=== PATIENT | female | born 1995 | race African-American/Black ===

== ENCOUNTER 2017-11-12 14:12 | Emergency (ER) | payer OTHER ==
[~2017-11-12] VITALS: Ht 160 cm; Wt 57.2 kg
[~2017-11-12 14:12] MED LIST: ENDOCET 5-3251 EACH PO; IBUPROFEN800 MG PO; IRON325 M1 PO; PRENATAL TABLE1 EACH PO
[2017-11-12 16:34] LABS: HEMATOCRIT 37.5 % (36.0-46.0); HEMOGLOBIN 12.4 G/DL (11.9-15.5); MCH 27.6 PG (29.0-34.0); MCHC 33.1 G/DL (30.0-36.0); MCV 83.3 FL (83-99); PLATELET COUNT 187 K/uL (156-360); RBC DIS.WIDTH-CV 13.5 % (11.8-14.6); RBC DIS.WIDTH-SD 41.5 % (39-53); WHITE BLOOD COUNT 8.1 K/uL (4.1-10.2)
[2017-11-12 16:35] LABS: APPEARANCE SL.HAZY ((CLEAR)); BILIRUBIN NEGATIVE; BLOOD SMALL; COLOR YELLOW ((YELLOW)); GLUCOSE (STRIP) NEGATIVE; KETONES NEGATIVE; LEUKOCYTES TRACE; NITRITE NEGATIVE; PROTEIN (STRIP) NEGATIVE; SPECIFIC GRAVITY 1.008 (1.000-1.030); UROBILINOGEN 0.2 MG/DL (0.2-1.0)
[2017-11-12 16:37] LABS: ALBUMIN 3.5 g/dL (3.2-4.8); CHLORIDE 103 mEq/L (99-109); POTASSIUM 3.9 mEq/L (3.7-5.4); SODIUM 135 mEq/L (136-147)
[2017-11-12 16:38] LABS: BACTERIA NONE SEEN /HPF; EPITHELIAL CELLS 1+ /HPF; MUCUS NONE SEEN /LPF; RED BLOOD CELLS 0-5 /HPF (0-5); UCUL ADDED? NO; WHITE BLOOD CELLS 0-5 /HPF (0-5)
[2017-11-12 16:40] LABS: GLUCOSE 116 mg/dL (70-99); TOTAL PROTEIN 6.6 g/dL (6.4-8.3)
[2017-11-12 16:41] LABS: TOTAL BILIRUBIN 0.8 mg/dL (0.0-1.0)
[2017-11-12 16:43] LABS: ALKALINE PHOSPHATASE 171 IU/L (3-129); CREATININE 0.9 mg/dL (0.6-1.3); GFR ESTIMATE (CALCULATED) > 59 mL/min/
[2017-11-12 16:44] LABS: UREA NITROGEN (BUN) 7 mg/dL (9-23)
[2017-11-12 16:45] LABS: AST (GOT) 150 IU/L (2-34)
[2017-11-12 16:46] LABS: ALT (GPT) 173 IU/L (3-49)
[2017-11-12 16:51] LABS: MONOSPOT (MONONUCLEOSIS SEROL) NEGATIVE
[2017-11-12 16:56] LABS: QUANTITATIVE HCG < 4.0 MIU/ML
[2017-11-12 17:19] LABS: LIPASE 13 U/L (1.0-51.0)
[2017-11-12] MEDS ORDERED: MOTRIN600 MG PO (17:33)
[2017-11-12] MEDS ORDERED: FIORICET 50-301 EAC1 PO (17:44)
[2017-11-12 18:14] VITALS: BP 111/75
[2017-11-13] MEDS ORDERED: MINOCYCLINE HC100 MG PO (21:53)
[2017-11-13] MEDS ORDERED: ADAPALENE45 G1 TP (21:53)
== END 2017-11-12 18:15 | disposition home or self-care (01) ==
LOC: EME 14:12
PROVIDERS: Physician Assistant
DX: R51 Headache (principal); R50.9 Fever, unspecified; Z88.0 Allergy status to penicillin
CPT/HCPCS: 80053; 81003; 83690; 84702; 85027; 86308; 87651 90; 99281; 99284

== ENCOUNTER 2017-11-13 18:41 | Inpatient (IN) | payer OTHER ==
[~2017-11-13] VITALS: Ht 160 cm; Wt 57.3 kg
[~2017-11-13 18:41] MED LIST changes: +FIORICET 50-301 EAC1 PO; +MOTRIN600 MG PO
[2017-11-13 19:40] LABS: HEMATOCRIT 39.2 % (36.0-46.0); MCH 27.3 PG (29.0-34.0); MCHC 33.2 G/DL (30.0-36.0); MCV 82.4 FL (83-99); PLATELET COUNT 214 K/uL (156-360); RBC DIS.WIDTH-CV 13.4 % (11.8-14.6); RBC DIS.WIDTH-SD 40.3 % (39-53); RED BLOOD COUNT 4.76 M/uL (3.80-5.20)
[2017-11-13 19:52] LABS: ALBUMIN 3.6 g/dL (3.2-4.8); CHLORIDE 100 mEq/L (99-109); POTASSIUM 4.1 mEq/L (3.7-5.4); SODIUM 134 mEq/L (136-147)
[2017-11-13 19:54] LABS: GLUCOSE 92 mg/dL (70-99); TOTAL PROTEIN 6.9 g/dL (6.4-8.3)
[2017-11-13 19:57] LABS: TOTAL BILIRUBIN 2.2 mg/dL (0.0-1.0)
[2017-11-13 19:58] LABS: CREATININE 0.9 mg/dL (0.6-1.3); GFR ESTIMATE (CALCULATED) > 59 mL/min/
[2017-11-13 19:59] LABS: ALKALINE PHOSPHATASE 374 IU/L (3-129); UREA NITROGEN (BUN) 7 mg/dL (9-23)
[2017-11-13 20:00] LABS: AST (GOT) 83 IU/L (2-34)
[2017-11-13 20:01] LABS: ALT (GPT) 145 IU/L (3-49); LIPASE 10 U/L (1.0-51.0)
[2017-11-13 20:07] LABS: QUANTITATIVE HCG < 4.0 MIU/ML
[2017-11-13 20:58] LABS: APPEARANCE CLOUDY ((CLEAR)); BILIRUBIN NEGATIVE; BLOOD NEGATIVE; COLOR AMBER ((YELLOW)); GLUCOSE (STRIP) NEGATIVE; KETONES 5; LEUKOCYTES SMALL; NITRITE NEGATIVE; PROTEIN (STRIP) 30; SPECIFIC GRAVITY 1.033 (1.000-1.030)
[2017-11-13 21:16] LABS: BACTERIA RARE /HPF; EPITHELIAL CELLS 3+ /HPF; MUCUS TRACE /LPF; RED BLOOD CELLS NONE SEEN /HPF (0-5); UCUL ADDED? YES; WHITE BLOOD CELLS 15-20 /HPF (0-5)
[2017-11-13 21:48] LABS: DIRECT BILIRUBIN 1.6 mg/dL (0.0-0.3)
[2017-11-13 21:50] LABS: AMPHETAMINE NEGATIVE (500 ng/mL); BARBITURATES PRESUMPTIVE POSITIVE (200 ng/mL); BENZODIAZEPINES NEGATIVE (150 ng/mL); BUPRENORPHINE NEGATIVE (10 ng/mL); COCAINE NEGATIVE (150 ng/mL); METHADONE NEGATIVE (200 ng/mL); METHAMPHETAMINE NEGATIVE (500 ng/mL); OPIATES (MORPHINE) NEGATIVE (100 ng/mL); OXYCODONE NEGATIVE (100 ng/mL); PHENCYCLIDINE NEGATIVE (25 ng/mL); PROPOXYPHENE NEGATIVE (300 ng/mL); THC CANNABINOIDS NEGATIVE (50 ng/mL); TRICYCLIC ANTIDEPRESSANTS NEGATIVE (300 ng/mL)
[2017-11-13] MEDS ORDERED: MINOCYCLINE HC100 MG PO (21:53)
[2017-11-13] MEDS ORDERED: ADAPALENE45 G1 TP (21:53)
[2017-11-13 22:20] LABS: MONOSPOT (MONONUCLEOSIS SEROL) NEGATIVE
[2017-11-14 02:59] VITALS: BP 97/58
[2017-11-14 04:50] LABS: HEMATOCRIT 36.6 % (36.0-46.0); HEMOGLOBIN 12.1 G/DL (11.9-15.5); MCH 27.1 PG (29.0-34.0); MCHC 33.1 G/DL (30.0-36.0); MCV 81.9 FL (83-99); PLATELET COUNT 207 K/uL (156-360); RBC DIS.WIDTH-CV 13.5 % (11.8-14.6); RBC DIS.WIDTH-SD 40.6 % (39-53); RED BLOOD COUNT 4.47 M/uL (3.80-5.20)
[2017-11-14 05:07] LABS: PLAT.SUFFICIENCY ADEQUATE
[2017-11-14 08:19] VITALS: BP 101/56
[2017-11-14 09:05] LABS: ACETAMINOPHEN (TYLENOL) < 10 MCG/ML (10-30); ALBUMIN 3.1 G/DL (3.2-4.8); ALKALINE PHOSPHATASE 328 IU/L (3-129); ALT (GPT) 87 IU/L (3-49); AST (GOT) 44 IU/L (2-34); CHLORIDE 104 MEQ/L (99-109); CREATININE 0.9 MG/DL (0.6-1.3); GFR ESTIMATE (CALCULATED) > 59 mL/min/; GLUCOSE 66 mg/dL (70-99); POTASSIUM 4.2 MEQ/L (3.7-5.4); SERUM ETHYL ALCOHOL < 10 mg/dL; SODIUM 138 MEQ/L (136-147); TOTAL PROTEIN 5.6 G/DL (6.4-8.3); UREA NITROGEN (BUN) 6 mg/dL (9-23)
[2017-11-14 09:06] LABS: SALICYLATE < 3.0 MG/DL (15-30)
[2017-11-14 16:12] VITALS: BP 110/68
[2017-11-14 17:21] VITALS: BP 117/68
[2017-11-14 20:00] VITALS: BP 103/51
[2017-11-15 00:07] VITALS: BP 105/60
[2017-11-15 03:59] VITALS: BP 103/61
[2017-11-15 07:03] LABS: CHLORIDE 108 MEQ/L (99-109); CREATININE 0.9 MG/DL (0.6-1.3); GFR ESTIMATE (CALCULATED) > 59 mL/min/; GLUCOSE 81 mg/dL (70-99); POTASSIUM 4.3 MEQ/L (3.7-5.4); SODIUM 139 MEQ/L (136-147); UREA NITROGEN (BUN) 7 mg/dL (9-23)
[2017-11-15 07:45] VITALS: BP 102/67
[2017-11-15 07:56] LABS: HEMATOCRIT 36.7 % (36.0-46.0); HEMOGLOBIN 11.9 G/DL (11.9-15.5); MCH 27.1 PG (29.0-34.0); MCHC 32.4 G/DL (30.0-36.0); MCV 83.6 FL (83-99); NRBC (%) 0.1 /100 WBC (0-0); PLATELET COUNT 249 K/uL (156-360); RBC DIS.WIDTH-CV 14.2 % (11.8-14.6); RBC DIS.WIDTH-SD 43.4 % (39-53); RED BLOOD COUNT 4.39 M/uL (3.80-5.20); WHITE BLOOD COUNT 16.3 K/uL (4.1-10.2)
[2017-11-15 08:11] LABS: ALBUMIN 2.6 G/DL (3.2-4.8); ALKALINE PHOSPHATASE 293 IU/L (3-129); ALT (GPT) 68 IU/L (3-49); AST (GOT) 38 IU/L (2-34); DIRECT BILIRUBIN 0.7 mg/dL (0.0-0.3)
[2017-11-15 08:13] LABS: TOTAL BILIRUBIN 1.3 MG/DL (0.0-1.0)
[2017-11-15 11:19] LABS: HEPATITIS B SURFACE ANTIGEN Nonreactive; HEPATITIS C ANTIBODY Nonreactive
[2017-11-15 11:21] LABS: ANTI-HEPATITIS A VIRUS (IGM) Nonreactive; ANTI-HEPATITIS B CORE (IGM) Nonreactive
[2017-11-15 15:37] VITALS: BP 121/79
[2017-11-15 23:30] VITALS: BP 110/66
[2017-11-16 05:50] LABS: HEMATOCRIT 34.7 % (36.0-46.0); HEMOGLOBIN 11.3 G/DL (11.9-15.5); MCH 26.8 PG (29.0-34.0); MCHC 32.6 G/DL (30.0-36.0); MCV 82.4 FL (83-99); PLATELET COUNT 273 K/uL (156-360); RBC DIS.WIDTH-CV 14.3 % (11.8-14.6); RBC DIS.WIDTH-SD 42.9 % (39-53); RED BLOOD COUNT 4.21 M/uL (3.80-5.20); WHITE BLOOD COUNT 19.3 K/uL (4.1-10.2)
[2017-11-16 06:20] LABS: ALBUMIN 2.9 G/DL (3.2-4.8); ALT (GPT) 79 IU/L (3-49); CHLORIDE 111 MEQ/L (99-109); CREATININE 0.8 MG/DL (0.6-1.3); GFR ESTIMATE (CALCULATED) > 59 mL/min/; GLUCOSE 121 mg/dL (70-99); POTASSIUM 4.6 MEQ/L (3.7-5.4); SODIUM 141 MEQ/L (136-147); TOTAL PROTEIN 5.5 G/DL (6.4-8.3); UREA NITROGEN (BUN) 11 mg/dL (9-23)
[2017-11-16 06:21] LABS: ALKALINE PHOSPHATASE 383 IU/L (3-129); AST (GOT) 68 IU/L (2-34); TOTAL BILIRUBIN 0.9 MG/DL (0.0-1.0)
[2017-11-16 07:30] VITALS: BP 104/70
[2017-11-16 14:58] LABS: HIV-1/2 AB/AG COMBO Nonreactive
[2017-11-16 15:25] VITALS: BP 103/57
[2017-11-16 23:35] VITALS: BP 92/62
[2017-11-17 07:35] VITALS: BP 113/78
[2017-11-17 08:04] LABS: HEMATOCRIT 39.4 % (36.0-46.0); HEMOGLOBIN 12.6 G/DL (11.9-15.5); MCH 26.6 PG (29.0-34.0); MCV 83.3 FL (83-99); RBC DIS.WIDTH-CV 14.6 % (11.8-14.6); RBC DIS.WIDTH-SD 44.5 % (39-53); RED BLOOD COUNT 4.73 M/uL (3.80-5.20); WHITE BLOOD COUNT 22.3 K/uL (4.1-10.2)
[2017-11-17 08:39] LABS: ALBUMIN 3.3 G/DL (3.2-4.8); ALKALINE PHOSPHATASE 321 IU/L (3-129); CHLORIDE 108 MEQ/L (99-109); CREATININE 0.9 MG/DL (0.6-1.3); GFR ESTIMATE (CALCULATED) > 59 mL/min/; POTASSIUM 4.6 MEQ/L (3.7-5.4); SODIUM 141 MEQ/L (136-147); TOTAL PROTEIN 5.8 G/DL (6.4-8.3); UREA NITROGEN (BUN) 15 mg/dL (9-23)
[2017-11-17 08:40] LABS: ALT (GPT) 167 IU/L (3-49); AST (GOT) 198 IU/L (2-34); GLUCOSE 88 mg/dL (70-99); TOTAL BILIRUBIN 0.6 MG/DL (0.0-1.0)
[2017-11-17 08:47] LABS: PLAT.SUFFICIENCY INCREASED; PLATELET COUNT 338 K/uL (156-360)
[2017-11-17 14:29] LABS: ATYPICAL LYMPHOCYTE 28.6 %; BAND NEUTROPHILS 3.6 % (0-8.0); EOSINOPHIL ABS CT 0.6; EOSINOPHILS 2.7 % (0-5.0); LYMPHOCYTES 29.4 % (15.0-45.0); METAMYELOCYTES 0.9 %; MONOCYTES 2.7 % (0-9.0); OTHER 4.4; SEG.NEUTROPHILS 27.7 % (46.0-76.0); SMUDGE CELLS 7.1
[2017-11-17 16:00] VITALS: BP 113/74
[2017-11-17 16:34] LABS: C DIFF TOXIN NEGATIVE (NEGATIVE)
[2017-11-17 23:33] VITALS: BP 97/53
[2017-11-18 05:50] LABS: HEMATOCRIT 34.3 % (36.0-46.0); HEMOGLOBIN 11.1 G/DL (11.9-15.5); MCH 26.6 PG (29.0-34.0); MCHC 32.4 G/DL (30.0-36.0); MCV 82.3 FL (83-99); PLATELET COUNT 298 K/uL (156-360); RBC DIS.WIDTH-CV 14.5 % (11.8-14.6); RBC DIS.WIDTH-SD 42.8 % (39-53); RED BLOOD COUNT 4.17 M/uL (3.80-5.20); WHITE BLOOD COUNT 12.5 K/uL (4.1-10.2)
[2017-11-18 06:26] LABS: ALKALINE PHOSPHATASE 253 IU/L (3-129); ALT (GPT) 116 IU/L (3-49); AST (GOT) 82 IU/L (2-34); CHLORIDE 110 MEQ/L (99-109); CREATININE 0.8 MG/DL (0.6-1.3); GFR ESTIMATE (CALCULATED) > 59 mL/min/; GLUCOSE 86 mg/dL (70-99); POTASSIUM 4.1 MEQ/L (3.7-5.4); SODIUM 143 MEQ/L (136-147); TOTAL BILIRUBIN 0.6 MG/DL (0.0-1.0); TOTAL PROTEIN 5.4 G/DL (6.4-8.3); UREA NITROGEN (BUN) 13 mg/dL (9-23)
[2017-11-18 07:43] VITALS: BP 110/68
[2017-11-18] MEDS ORDERED: VALACYCLOVIR500 MG PO (08:23)
[2017-11-18] MEDS ORDERED: PREDNISONE10 MG PO (08:26)
[2017-11-18] MEDS ORDERED: BENADRYL25 MG PO (08:30)
== END 2017-11-18 10:03 | disposition home or self-care (01) | DRG 391 ==
LOC: EME 18:41 → 2EAST 11-14 01:28 → EDOF 11-14 01:28 → ENRESERV 11-14 01:30 → 2EAST 11-14 02:58
PROVIDERS: Hospitalist; Internal Medicine; Nurse Practitioner Family
DX: R10.13 Epigastric pain (principal); J18.9 Pneumonia, unspecified organism; K83.0 Cholangitis; R18.8 Other ascites; J98.11 Atelectasis; B37.0 Candidal stomatitis; R74.0 Nonspecific elevation of levels of transaminase and lactic acid dehydrogenase [LDH]; B27.90 Infectious mononucleosis, unspecified without complication; R09.02 Hypoxemia; T38.0X5A Adverse effect of glucocorticoids and synthetic analogues, initial encounter; R63.0 Anorexia; K75.89 Other specified inflammatory liver diseases; L70.9 Acne, unspecified; R59.0 Localized enlarged lymph nodes; R51 Headache; R74.8 Abnormal levels of other serum enzymes; N83.292 Other ovarian cyst, left side; Z88.0 Allergy status to penicillin
CPT/HCPCS: 71045; 74177; 76705; 78227; 80048; 80053; 80074; 80076; 81003; 82164 90; 82248; 83690; 84702; 84999; 85007; 85027; 86038; 86160 90; 86256 90; 86308; 87040; 87086; 87389; 87449; 87493; 87651 90; 94640; 99202; 99281; 99284; 99285; A9537; G0480; J0696; J0744; J1170; J1200; J1650; J1885; J1956; J2405; J2805; J2920; J3010; J7030; J7050; J7120; J7512; S0028; S0030